=== PATIENT | male | born 1950 | race Caucasian/White ===

== ENCOUNTER 2018-10-20 15:39 | Emergency (ER) | payer OTHER ==
--- NOTE | 2018-10-20 18:05 | RADIOLOGY REPORT (SQ) ---
EXAM DESCRIPTION: FINGER LEFT COMPLETED DATE/TIME: 10/20/2018 5:36 pm REASON FOR STUDY: crushinjury COMPARISON: None. EXAM PARAMETERS: NUMBER OF VIEWS: Three views. TECHNIQUE: AP, lateral and oblique radiographic images acquired of the left hand. LIMITATIONS: None. FINDINGS: MINERALIZATION: Normal. BONES: Comminuted minimally displaced fracture of the distal phalanx of the left 3rd digit with longi tudinal intra-articular components, no significant articular step-off is identified. JOINTS: No effusion. SOFT TISSUES: 3rd digit soft tissue swelling. No radiopaque foreign body. OTHER: No other significant finding. IMPRESSION: Comminuted minimally displaced fracture of the distal phalanx of the left 3rd digit with longitudinal intra-articular components, no significant articular step-off is identified. TECHNICAL DOCUMENTATION: JOB ID: [id number] [employer]- All Rights Reserved Reading location - IP/workstation name: [email or web address]
[2018-10-20] MEDS ORDERED: DIPH/PERTUSS(ACELL)/TETANUS VAC/PF 0.5 ML SYR (>=10YO) IM ONE (18:37)
[2018-10-20] MEDS ORDERED: CEFAZOLIN 2 GM/D5W RTU 2 GM/50 ML RTUPB IV ONE (18:37)
--- NOTE | 2018-10-20 19:01 | ER Document Report ---
ED Hand/Wrist Injury - General Chief Complaint: Finger Injury Stated Complaint: FINGER INJURY Time Seen by Provider: 10/20/18 16:58 Primary Care Provider: MARIEL MCCRARY MD [Primary Care Provider] - Follow up as needed JESSE MONTAGUE MD [ASSOCIATE] - Follow up as needed Mode of Arrival: Ambulatory Information source: Patient TRAVEL OUTSIDE OF THE [place] IN LAST 30 DAYS: No - HPI Injury to: Middle finger Onset: Yesterday Where: Home Timing: Constant Quality of pain: No pain Severity: None Pain Level: Denies Context: Crush Notes: Patient said he was working on wood with a Skill saw yesterday when suddenly the equipment malfunctioned and kicked up the wood and the wood afflicted a crush injury to his left middle finger. This happened at 2 PM yesterday. Patient initially did not want to go to the hospital until this afternoon when he noticed that the middle finger has some purplish discoloration. He denies any pain currently. - Related Data Allergies/Adverse Reactions: No Known Allergies Allergy (Unverified 10/20/18 16:58) Past Medical History - General Information source: Patient - Social History Smoking Status: Never Smoker Family History: Reviewed & Not Pertinent Patient has suicidal ideation: No Patient has homicidal ideation: No Renal/ Medical History: Denies: Hx Peritoneal Dialysis Past Surgical History: Reports: Hx Thyroid Surgery, Hx Tonsillectomy Review of Systems - Review of Systems Constitutional: No symptoms reported EENT: No symptoms reported Cardiovascular: No symptoms reported Respiratory: No symptoms reported Gastrointestinal: No symptoms reported Genitourinary: No symptoms reported Male Genitourinary: No symptoms reported Musculoskeletal: Other - Crush injury to the left middle finger. Skin: Other - Small laceration to the palmar aspect of the left middle finger. Hematologic/Lymphatic: No symptoms reported Neurological/Psychological: No symptoms reported -: Yes All other systems reviewed and negative Physical Exam - Vital signs Vitals: Temp Pulse Resp BP Pulse Ox 97.9 F 64 18 161/89 H 99 10/20/18 15:51 10/20/18 15:51 10/20/18 15:51 10/20/18 15:51 10/20/18 15:51 Interpretation: Normal - General General appearance: Appears well, Alert - HEENT Head: Normocephalic, Atraumatic Eyes: Normal Pupils: PERRL - Respiratory Respiratory status: No respiratory distress Chest status: Nontender Breath sounds: Normal Chest palpation: Normal - Cardiovascular Rhythm: Regular Heart sounds: Normal auscultation Murmur: No - Abdominal Inspection: Normal Distension: No distension Bowel sounds: Normal Tenderness: Nontender Organomegaly: No organomegaly - Back Back: Normal, Nontender - Extremities General upper extremity: Normal temperature General lower extremity: Normal inspection, Nontender, Normal color, Normal ROM, Normal temperature, Normal weight bearing. No: Heidi's sign Hand: Other - There is discoloration of the distal half of the third left finger. There is also a 1 cm laceration on the palmar aspect of the distal left finger and a puncture wound below the nailbed of the left third finger. There is decreased range of motion of the said finger. Bleeding is controlled. Ankle: Normal Foot: Normal - Neurological Neuro grossly intact: Yes Cognition: Normal Orientation: AAOx4 [place] Coma Scale Eye Opening: Spontaneous [place] Coma Scale Verbal: Oriented [place] Coma Scale Motor: Obeys Commands Bea[place]ont Coma Scale Total: 15 Speech: Normal Motor strength normal: LUE, RUE, LLE, RLE Sensory: Normal - Psychological Associated symptoms: Normal affect, Normal mood - Skin Skin Temperature: Warm Skin Moisture: Dry Skin Color: Normal Course - Vital Signs Vital signs: Temp Pulse Resp BP Pulse Ox 98.9 F 63 16 149/78 H 98 10/20/18 19:09 10/20/18 19:09 10/20/18 19:09 10/20/18 19:09 10/20/18 19:09 - Laboratory Result Diagrams: 10/20/18 19:01 10/20/18 19:01 Laboratory results interpreted by me: 10/20/18 19:01 Total Protein 8.7 H - Diagnostic Test Radiology reviewed: Reports reviewed Radiology results interpreted by me: 10/20/18 19:03 Finger x-ray showed a comminuted displaced fracture of the distal phalanx of the left third finger. - Transfer of Care Notes: 10/20/18 19:01 I consulted the orthopedic surgeon student education specialist Dr. Jesse Montague. He recommend dressing the wound without suturing the laceration. He wants patient discharged home on antibiotics to follow-up at his outpatient clinic tomorrow morning. He also looked at the x-ray prior to giving this recommendation. Procedures - Immobilization Left Upper Finger 3rd digit Time completed: 19:30 Pre-Proc Neuro Vasc Exam: Normal Immobilizer type: Finger splint (Static) Performed by: RN Post-Proc Neuro Vasc Exam: Normal Notes: 10/20/18 21:05 No complication. Discharge - Discharge Clinical Impression: Open fracture of finger of left hand Qualifiers: Encounter type: initial encounter Finger: middle finger Phalanx: distal Fracture alignment: displaced Qualified Code(s): S62.633B - Displaced fracture of distal phalanx of left middle finger, initial encounter for open fracture Crush injury to finger Qualifiers: Encounter type: initial encounter Qualified Code(s): S67.10XA - Crushing injury of unspecified finger(s), initial encounter Condition: Stable Disposition: HOME, SELF-CARE Instructions: Crush Injury ([facility]), Fractured Finger ([facility]) Additional Instructions: Please follow-up with Dr. Jesse Montague tomorrow morning in his outpatient clinic. His office phone number is [phone]. Prescriptions: Ibuprofen [Ibu] 800 mg PO Q8H PRN #20 tablet PRN Reason: Pain Scale Of 3 Mupirocin [Bactroban 2% Ointment 22 gm] 1 applic TP TID #1 tube Sulfamethoxazole/Trimethoprim [Bactrim Ds Tablet] 1 each PO BID #24 tablet Referrals: MARIEL MCCRARY MD [Primary Care Provider] - Follow up as needed JESSE MONTAGUE MD [ASSOCIATE] - Follow up as needed
[2018-10-20] MEDS ORDERED: MUPIROCIN 2% OINTMENT 22 GM TP ONE (19:11)
[2018-10-20 19:17] VITALS: BP 149/78
[2018-10-20 19:24] LABS: ABSOLUTE EOSINOPHILS # (AUTO) 0.1 10^3/uL (0.0-0.6); ABSOLUTE LYMPHOCYTES (AUTO) 2.1 10^3/uL (0.5-4.7); ABSOLUTE MONOCYTES (AUTO) 0.5 10^3/uL (0.1-1.4); BASOPHILS % (AUTO) 0.6 % (0-2); HEMATOCRIT 42.1 % (37.9-51.0); HEMOGLOBIN 14.3 g/dL (13.5-17.0); LYMPHOCYTES % (AUTO) 36.5 % (13-45); MEAN CORPUSCULAR HEMOGLOBIN 31.6 pg (27.0-33.4); MEAN CORPUSCULAR VOLUME 93 fl (80-97); MONOCYTES % (AUTO) 8.8 % (3-13); PLATELET COUNT 176 10^3/uL (150-450); RED BLOOD COUNT 4.52 10^6/uL (4.35-5.55); RED CELL DISTRIBUTION WIDTH 13.2 % (11.5-14.0); SEGMENTED NEUTROPHILS % (AUTO) 52.1 % (42-78); TOTAL CELLS COUNTED % (AUTO) 100 %; WHITE BLOOD COUNT 5.8 10^3/uL (4.0-10.5)
[2018-10-20 19:40] LABS: PROTHROMBIN TIME 13.2 SEC (11.4-15.4)
[2018-10-20 19:41] LABS: ALANINE AMINOTRANSFERASE 47 U/L (21-72); ALBUMIN 4.8 g/dL (3.5-5.0); ALKALINE PHOSPHATASE 63 U/L (38-126); ANION GAP 11 (5-19); ASPARTATE AMINO TRANSFERASE 37 U/L (17-59); BILIRUBIN,DIRECT 0.2 mg/dL (0.0-0.4); BILIRUBIN,TOTAL 0.7 mg/dL (0.2-1.3); BLOOD UREA NITROGEN 17 mg/dL (7-20); CALCIUM 9.8 mg/dL (8.4-10.2); CARBON DIOXIDE 26 mmol/L (22-30); CHLORIDE 102 mmol/L (98-107); GLUCOSE 96 mg/dL (75-110); PARTIAL THROMBOPLASTIN TIME 29.3 SEC (23.5-35.8); POTASSIUM 4.4 mmol/L (3.6-5.0); SODIUM 138.8 mmol/L (137-145); TOTAL PROTEIN 8.7 g/dL (6.3-8.2)
== END 2018-10-20 20:22 | disposition home or self-care (01) ==
LOC: ER 15:39
DX: S67.193A Crushing injury of left middle finger, initial encounter (principal); S62.633B Displaced fracture of distal phalanx of left middle finger, initial encounter for open fracture; W23.0XXA Caught, crushed, jammed, or pinched between moving objects, initial encounter; Y93.89 Activity, other specified; Y92.009 Unspecified place in unspecified non-institutional (private) residence as the place of occurrence of the external cause
CPT/HCPCS: 99283; 90471; 96365; 36415; 85025; 85610; 85730; 80053; 73140; 90715; J3490; J0690